=== PATIENT | male | born 1970 | race Two or more races ===

== ENCOUNTER 2020-04-19 | Outpatient (REF) | payer OTHER, SELFPAY | END 2020-04-19 00:01 | disposition home or self-care (01) | LOC: HO.LNP | PROVIDERS: Visit Provider Hospitalist | DX: Z20.828 Contact with and (suspected) exposure to other viral communicable diseases (principal) | CPT/HCPCS: 87635 ==

== ENCOUNTER 2020-05-27 16:54 | Outpatient (REF) | payer OTHER, SELFPAY ==
[2020-05-27 17:06] LABS: Glucose Urine UA NEG (NEG); Leukocyte Esterase Urine NEG (NEG); Nitrite Urine NEG (NEG); Specific Gravity - Urine >= 1.030 (1.005-1.025); Urine Blood NEG (NEG); Urine Ketones NEG (NEG); Urine Protein NEG (NEG-TRACE)
[2020-05-27 17:08] LABS: Appearance Urine CLEAR; Color Urine YELLOW
== END 2020-05-27 16:55 | disposition home or self-care (01) ==
LOC: HO.LNP 16:54
PROVIDERS: Visit Provider Nurse Practitioner Family
DX: N39.44 Nocturnal enuresis (principal); N52.9 Male erectile dysfunction, unspecified; M25.512 Pain in left shoulder
CPT/HCPCS: 81003; 87086

== ENCOUNTER 2020-09-19 15:18 | Outpatient (REF) | payer OTHER, SELFPAY ==
--- NOTE | ~2020-09-19 | XR_ITS ---
EXAMINATION: XR SHOULDER, LEFT CLINICAL INFORMATION: Pain in the left shoulder COMPARISON: X-ray left shoulder April 2019 TECHNIQUE: AP external rotation, Grashey, scapular Y, and axillary views of the left shoulder. FINDINGS: The bones and soft tissues are normal. No fracture. Glenohumeral and acromioclavicular alignment is anatomic with normal joint space. No abnormal soft tissue calcifications. XR/XR shoulder LT min 2V IMPRESSION: Normal left shoulder.
[2020-09-24 20:17] LABS: Testosterone, Total 99 ng/dL (250-1100)
== END 2020-09-19 15:19 | disposition home or self-care (01) ==
LOC: HO.HMGCLDS 15:18
PROVIDERS: PCP Nurse Practitioner Family; Visit Provider Nurse Practitioner Family
DX: N52.9 Male erectile dysfunction, unspecified (principal); M25.512 Pain in left shoulder
CPT/HCPCS: 36415; 73030; 84403

== ENCOUNTER → 2021-12-16 12:09 | Outpatient (BNVA) | payer OTHER, SELFPAY | PROVIDERS: PCP Nurse Practitioner Family; Visit Provider Physician Assistant | DX: Z13.89 Encounter for screening for other disorder (principal) | CPT/HCPCS: Q3014 ==

== ENCOUNTER → 2022-02-10 13:14 | Outpatient (BNVA) | payer OTHER, SELFPAY | PROVIDERS: PCP Nurse Practitioner Family; Visit Provider Urology | DX: E29.1 Testicular hypofunction (principal); T40.605A Adverse effect of unspecified narcotics, initial encounter; N52.9 Male erectile dysfunction, unspecified; R79.89 Other specified abnormal findings of blood chemistry; Z12.5 Encounter for screening for malignant neoplasm of prostate; Z79.899 Other long term (current) drug therapy | CPT/HCPCS: 99202 ==

== ENCOUNTER 2022-03-18 15:28 | Outpatient (REF) | payer OTHER, SELFPAY ==
[2022-03-18 17:36] LABS: Prostate Specific Antigen Scr 0.17 ng/mL (<0.05-4.0)
[2022-03-20 05:56] LABS: Follicle Stimulating Hormone 5.4 mIU/mL (1.6-8.0); Lutenizing Hormone 1.2 mIU/mL (1.5-9.3)
[2022-03-24 15:32] LABS: Testosterone, Free 22.5 pg/mL (35.0-155.0); Testosterone, Total 139 ng/dL (250-1100)
== END 2022-03-18 15:29 | disposition home or self-care (01) ==
LOC: HO.LAB 15:28
PROVIDERS: PCP Nurse Practitioner Family; Visit Provider Urology
DX: Z12.5 Encounter for screening for malignant neoplasm of prostate (principal); R79.89 Other specified abnormal findings of blood chemistry; E29.1 Testicular hypofunction
CPT/HCPCS: 36415; 83001; 83002; 84153; 84402; 84403

== ENCOUNTER → 2022-03-25 13:17 | Outpatient (BNVA) | payer OTHER, SELFPAY | PROVIDERS: PCP Nurse Practitioner Family; Visit Provider Urology | DX: E29.1 Testicular hypofunction (principal); N52.9 Male erectile dysfunction, unspecified | CPT/HCPCS: Q3014 ==

== ENCOUNTER 2022-06-24 16:13 | Outpatient (REF) | payer OTHER, SELFPAY ==
[2022-07-01 12:23] LABS: Testosterone, Total 119 ng/dL (250-1100)
== END 2022-06-24 16:14 | disposition home or self-care (01) ==
LOC: HO.LAB 16:13
PROVIDERS: PCP Nurse Practitioner Family; Visit Provider Urology
DX: E29.1 Testicular hypofunction (principal)
CPT/HCPCS: 36415; 84403

== ENCOUNTER → 2022-07-01 13:51 | Outpatient (BNVA) | payer OTHER, SELFPAY | PROVIDERS: PCP Nurse Practitioner Family; Visit Provider Urology | DX: E29.1 Testicular hypofunction (principal); N52.9 Male erectile dysfunction, unspecified; Z79.891 Long term (current) use of opiate analgesic | CPT/HCPCS: Q3014 ==

== ENCOUNTER 2023-01-07 15:37 | Outpatient (REF) | payer OTHER, SELFPAY ==
--- NOTE | 2023-01-07 15:39 | EMG_ITS ---
Please see scanned EMG / Nerve Conduction Report. MTDD
== END 2023-01-07 15:38 | disposition home or self-care (01) ==
LOC: HO.NEURO 15:37
PROVIDERS: PCP Nurse Practitioner Family; Visit Provider Nurse Practitioner Family
DX: R20.0 Anesthesia of skin (principal)
CPT/HCPCS: 95885; 95910

== ENCOUNTER 2023-03-16 13:13 | Outpatient (AMB) | payer OTHER, SELFPAY ==
--- NOTE | 2023-03-16 13:21 | MHC.PC.OV ---
Vital Signs 03/16/23 13:22 Height 5 ft 7 in Weight 205 lb 4 oz BMI 32.1 BP 142/80 H Blood Pressure Location Lt brachial Position Sitting Pulse 87 Pulse Source Pulse Oximeter Pulse Oximetry (%) 95 Oxygen Delivery Method Room Air Intake Visit Reasons: 5 Month follow up Allergies No Known Allergies Allergy (Verified 03/16/23 13:25) Tobacco use date assessed: 03/16/23 Dental Screening Dental Screen Date: 03/16/23 Did you have a dental visit in the last 12 months?: No Did you have a dental problem in the last 6 months where you did not have access to dental care?: No Was dental information given to patient?: Patient has dentist HPI 5 Month follow up HPI Details Pt reports symptoms of a balanitis and start of a phimosis. Will send clotrimazole-betamethasone cream. Pt also reports trigger finger to his left thumb. Will refer to ortho. Denies fever, chills, and dizziness. [facility] Medical History Anxiety Fibromyalgia Insomnia Osteoarthritis of left hip Severe depression Surgical History No pertinent past surgical history Family History Father No problems noted. Mother Diabetes mellitus Brother No problems noted. Brother Substance use disorder Sister Mental health disorder Son Substance use disorder Son No problems noted. Son No problems noted. Son No problems noted. Family/Other Mental health disorder Social History Housing: House Patient Tobacco Use Status: Current everyday Tobacco user Cigarettes Per Day: 7 e-Cigarette/Vaping Use: Never Used Second Hand Smoke Exposure: No service: No Current occupational status: disabled Cognitive needs: No Hearing needs: No Vision needs: No Questionnaire Thrive Questionnaire Date Thrive assessed: 10/22/22 SANTOS-7 AMB Questionnaire SANTOS-7 Date SANTOS - 7 assessed: 10/22/22 Source: Developed by Drs. Bubba Keene, Gosia Croft, Roger Osborn and colleagues, with an educational mic from [employer]. Review of Systems Const Reports as per HPI Physical exam (Primary Care) Vital Signs: Last Vital Signs Pulse 87 03/16/23 13:22 BP 142/80 H 03/16/23 13:22 Pulse Ox 95 03/16/23 13:22 Oxygen Delivery Method Room Air 03/16/23 13:22 BMI result Body Mass Index 32.1 Tobacco/Smoking Status: Tobacco use Status Tobacco use date assessed 03/16/23 03/16/23 13:32 Patient Tobacco Use Status Current everyday Tobacco 03/16/23 13:32 e-Cigarette/Vaping Use Never Used 03/16/23 13:32 Thrive Assessment: Date of Thrive Assessment Date Thrive assessed 10/22/22 03/16/23 13:32 Const General: cooperative Nutritional Appearance: obese Orientation/consciousness: patient oriented x3 Resp Effort & Inspection: normal respiratory effort Auscultation: clear to auscultation bilaterally Cardio Rate: regular rate Rhythm: regular rhythm Heart sounds: S1 normal heart sound present and S2 normal heart sound present Other: start of slight phimosis though able to retract foreskin, base of glans penis slightly erythematous (balanitis) Neuro General: patient oriented x3 Extrem Other: trigger finger to left thumb distal PIP joint, snapping extension Psych Appearance: grossly normal Mental Status: mental status grossly normal Speech and movement: Normal speech and movement present Affect: normal affect Attitude: cooperative Thought process: Normal thought process present Thought content: Normal thought content present Insight: Good insight present (Psych) Judgement: Good judgement present (Psych) Assessment and Plan Assessment & Plan (1) Trigger finger: Code(s): M65.30 - Trigger finger, unspecified finger Plan: Referred to ortho Plan The patient agreed to the use of a medical communication specialist for this encounter. Scribed for KENYETTA Garrett by Marcy Armenta medical communication specialist, on 03/16/2023 at 13:35 EST. Orders: Referrals Orthopedics Referral M65.30 - Trigger finger, unspecified finger Medications: New clotrimazole-betamethasone 1-0.05 % 1 appl topical BID 45 grams 0RF Coding Level of Care Code Est Pt Level 3 (68456) Diagnoses Trigger finger M65.30
[2023-03-16 13:22] VITALS: BP 142/80; PULSE 87; O2SAT 95; BMI 32.1
== END 2023-03-16 13:55 | disposition home or self-care (01) ==
PROVIDERS: Visit Provider Nurse Practitioner Family
DX: M65.30 Trigger finger, unspecified finger (principal)
CPT/HCPCS: 99213

== ENCOUNTER 2023-05-13 14:26 | Outpatient (AMB) | payer OTHER, SELFPAY ==
--- NOTE | 2023-05-13 14:28 | MHC.OFFVIS ---
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 Patient reports ongoing pain for the left thumb and off and on pain for the right for about a year. He states that his left thumb is worse than the right. When he is over working his hands he tends to have a clicking sensation in both thumbs per patient. 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 The patient reports ongoing pain for the left thumb and intermittent pain for the right thumb over the last year, since 2021. He states that his left thumb is worse than the right. He claims when he overworks the hands he tends to have a clicking sensation in both thumbs. 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 [facility] Medical History Anxiety Fibromyalgia Insomnia Osteoarthritis of left hip Severe depression Surgical History No pertinent past surgical history Family History Father No problems noted. Mother Diabetes mellitus Brother No problems noted. Brother Substance use disorder Sister Mental health disorder Son Substance use disorder Son No problems noted. Son No problems noted. Son No problems noted. Family/Other Mental health disorder Social History Housing: House Patient Tobacco Use Status: Current everyday Tobacco user Cigarettes Per Day: 7 e-Cigarette/Vaping Use: Never Used Second Hand Smoke Exposure: No service: No Current occupational status: disabled Cognitive needs: No Hearing needs: No Vision needs: No Review of Systems Const All systems reviewed & are unremarkable except as noted in HPI and below Physical Exam Vital Signs: BMI result Body Mass Index 32.1 Const General: cooperative and no acute distress Orientation/consciousness: patient oriented x3 Resp Effort & Inspection: normal respiratory effort and able to speak in complete sentences Cardio Peripheral pulses: Peripheral pulses 2+ throughout Skin General skin exam: no rashes or lesions noted Neuro General: patient oriented x3 Extrem Other: Left thumb: Trigger finger of the left thumb with active locking. Tenderness to palpation at the A1 vimal. Left hand: Normal to inspection. No ecchymosis, erythema, or edema. Able to perform full finger flexion, extension, abduction, adduction, finger cross, okay sign, and thumbs up without deficit. Able to make a closed fist. Intermittent numbness and tingling in all digits. Capillary refill is brisk. Radial pulse intact. Assessment & Plan Assessment & Plan (1) Trigger finger of left thumb: Code(s): M65.312 - Trigger thumb, left thumb Plan Mr. Espinosa is a 52-year-old right hand dominant male who presents in the office today, as a new patient, for an evaluation of bilateral thumb pain. The patient reports ongoing pain for the left thumb and intermittent pain for the right thumb over the last year, since 2021. He states that his left thumb is worse than the right. He claims when he overworks the hands he tends to have a clicking sensation in both thumbs. 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 We discussed a left thumb trigger finger release. He has interested in moving forward with this. He did have an EMG which was negative for carpal tunnel or cubital tunnel. He will follow up for her preoperative appointment, or sooner if needed. EMG of the left upper extremity, obtained on 01/07/2023, was negative for cubital or carpal tunnel. Patient Instructions: Scribed for Glenis Pennington PA-C by Cristina Aaron medical genetics director, on 05/13/2023 at 2:35 pm, EST. Coding Level of Care Code New Pt Level 4 (40218) Diagnoses Trigger finger of left thumb M65.312
[2023-05-13 14:34] VITALS: BMI 32.1
== END 2023-05-13 15:01 | disposition home or self-care (01) ==
PROVIDERS: PCP Nurse Practitioner Family; Visit Provider Physician Assistant
DX: M65.312 Trigger thumb, left thumb (principal)
CPT/HCPCS: 99204

== ENCOUNTER → 2023-05-13 14:26 | Outpatient (BNVA) | payer OTHER, SELFPAY | PROVIDERS: PCP Nurse Practitioner Family; Visit Provider Physician Assistant | DX: M65.312 Trigger thumb, left thumb (principal) | CPT/HCPCS: 99202 ==

== ENCOUNTER 2023-06-15 15:40 | Outpatient (AMB) | payer OTHER, SELFPAY ==
--- NOTE | 2023-06-15 15:42 | A.OFFPC_ITS ---
Vital Signs 06/15/23 15:45 Height 5 ft 7 in Weight 207 lb BMI 32.4 BP 110/68 Blood Pressure Location Rt brachial Position Sitting Pulse 70 Pulse Source Pulse Oximeter Pulse Oximetry (%) 96 Oxygen Delivery Method Room Air Intake Visit Reasons: 3-4 Month follow up Intake Note: Patient would like to talk about lower back pain and bilat hand pain/numbness. Allergies No Known Allergies Allergy (Verified 06/15/23 15:48) Tobacco use date assessed: 03/16/23 HPI 3-4 Month follow up HPI Details Pt is following up with ortho due to trigger thumb of left hand. Pt is concerned about his bilat hand weakness. ? arthritis component. XRs have been ordered previously, encouraged pt to have these done. Denies fever, chills, and dizziness. [facility] Medical History Anxiety Fibromyalgia Insomnia Osteoarthritis of left hip Severe depression Surgical History No pertinent past surgical history Family History Father No problems noted. Mother Diabetes mellitus Brother No problems noted. Brother Substance use disorder Sister Mental health disorder Son Substance use disorder Son No problems noted. Son No problems noted. Son No problems noted. Family/Other Mental health disorder Social History Housing: House Patient Tobacco Use Status: Current everyday Tobacco user Cigarettes Per Day: 7 e-Cigarette/Vaping Use: Never Used Second Hand Smoke Exposure: No service: No Current occupational status: disabled Cognitive needs: No Hearing needs: No Vision needs: No Questionnaire Thrive Questionnaire Date Thrive assessed: 10/22/22 SANTOS-7 AMB Questionnaire SANTOS-7 Date SANTOS - 7 assessed: 10/22/22 Source: Developed by Drs. Bubba Keene, Gosia Croft, Roger Osborn and colleagues, with an educational mic from [employer]. Review of Systems Const Reports as per HPI Physical exam (Primary Care) Vital Signs: Last Vital Signs Pulse 70 06/15/23 15:45 BP 110/68 06/15/23 15:45 Pulse Ox 96 06/15/23 15:45 Oxygen Delivery Method Room Air 06/15/23 15:45 BMI result Body Mass Index 32.4 Tobacco/Smoking Status: Tobacco use Status Tobacco use date assessed 03/16/23 06/15/23 15:44 Patient Tobacco Use Status Current everyday Tobacco 06/15/23 15:44 e-Cigarette/Vaping Use Never Used 06/15/23 15:44 Thrive Assessment: Date of Thrive Assessment Date Thrive assessed 10/22/22 06/15/23 15:44 Const General: cooperative Nutritional Appearance: obese Orientation/consciousness: patient oriented x3 Resp Effort & Inspection: normal respiratory effort Auscultation: clear to auscultation bilaterally Cardio Rate: regular rate Rhythm: regular rhythm Heart sounds: S1 normal heart sound present and S2 normal heart sound present Neuro General: patient oriented x3 Extrem Other: minimal swelling to PIP joints bilat, weak hand grasp bilat, + radial pulses, good cap refill Psych Appearance: grossly normal Mental Status: mental status grossly normal Speech and movement: Normal speech and movement present Affect: normal affect Attitude: cooperative Thought process: Normal thought process present Thought content: Normal thought content present Insight: Good insight present (Psych) Judgement: Good judgement present (Psych) Assessment and Plan Assessment & Plan (1) Trigger finger of left thumb: Code(s): M65.312 - Trigger thumb, left thumb (2) Osteoarthritis, hand: Code(s): M19.049 - Primary osteoarthritis, unspecified hand Plan The patient agreed to the use of a pesticide use medical coordinator for this encounter. Scribed for KENYETTA Garrett by Marcy Armenta pesticide use medical coordinator, on 06/15/2023 at 15:50 EST. Coding Level of Care Code Est Pt Level 3 (97833) Diagnoses Trigger finger of left thumb M65.312 Osteoarthritis, hand M19.049
[2023-06-15 15:45] VITALS: BP 110/68; PULSE 70; O2SAT 96; BMI 32.4
== END 2023-06-15 16:18 | disposition home or self-care (01) ==
LOC: HO.HMGC 15:40
PROVIDERS: PCP Nurse Practitioner Family; Visit Provider Nurse Practitioner Family
DX: M65.312 Trigger thumb, left thumb (principal); M19.049 Primary osteoarthritis, unspecified hand
CPT/HCPCS: 99213

== ENCOUNTER 2023-06-15 16:03 | Outpatient (REF) | payer OTHER, SELFPAY ==
--- NOTE | ~2023-06-15 | XR_ITS ---
EXAMINATION: XR HAND, RIGHT CLINICAL INFORMATION: Primary osteoarthritis COMPARISON: None available. TECHNIQUE: PA, lateral, and oblique views of the right hand. FINDINGS: No acute visible fracture or dislocation. Mild multi joint arthritic changes with joint space narrowing and periarticular osteophyte formation. Joint space alignment are otherwise maintained. Soft tissues are unremarkable. XR/XR hand RT min 3V IMPRESSION: 1. No acute visible fracture or dislocation. 2. Mild multi joint arthritic changes.
--- NOTE | ~2023-06-15 | XR_ITS ---
EXAMINATION: XR HAND, LEFT CLINICAL INFORMATION: Primary osteoarthritis COMPARISON: None available. TECHNIQUE: PA, lateral, and oblique views of the left hand. FINDINGS: No acute visible fracture or dislocation. Mild multi joint arthritic changes with joint space narrowing and periarticular osteophyte formation. Slight negative ulnar variance. Joint space alignment are otherwise maintained. Soft tissues are unremarkable. XR/XR hand LT min 3V IMPRESSION: 1. No acute visible fracture or dislocation. 2. Mild multi joint arthritic changes. 3. Slight negative ulnar variance.
== END 2023-06-15 16:04 | disposition home or self-care (01) ==
LOC: HO.HMGCX 16:03
PROVIDERS: PCP Nurse Practitioner Family; Visit Provider Nurse Practitioner Family
DX: M19.041 Primary osteoarthritis, right hand (principal); M19.042 Primary osteoarthritis, left hand
CPT/HCPCS: 73130

== ENCOUNTER 2023-12-28 14:00 | Outpatient (AMB) | payer OTHER, SELFPAY ==
[2023-12-28 14:12] VITALS: BP 130/78; PULSE 88; TEMP 36.6; O2SAT 98
--- NOTE | 2023-12-28 14:12 | AM.OFFWIN_ITS ---
Intake Vital Signs 12/28/23 14:12 Height 5 ft 7 in Weight 20 lb BMI 3.1 BP 130/78 Blood Pressure Location Rt brachial Position Sitting Pulse 88 Pulse Source Pulse Oximeter Temp 97.8 F Temp Source Oral Pulse Oximetry (%) 98 Intake Visit Reasons: EP-Rash, bilateral legs Intake Note: pt is here for rash bilateral leg pain Patient Tobacco Use Status: Current everyday Tobacco user Allergies No Known Allergies Allergy (Verified 12/28/23 14:12) Do you need a note to return to daycare/school/sports/work: No HPI HPI Comments History of Present Illness Details Patient presents to the office with rash complaint He states ongoing chronic arthritis in fingers and L shoulder which he notes is continual He said main complaint is rash/spots on legs Using soaps on areas which helps Ongoing for 6 months; he denies seeig anyone for it States hx of it a few years ago and was treated with a clay products machine operator with antibiotics He said no itch or pain now, 0/10 Wants to know why it keeps coming back He itches them and they bleed No fever or chills Also states itchy redness around groin; believes secondary to wearing depends and sometimes wakes up wet Cleans area immediately PFSH Medical History Anxiety Fibromyalgia Insomnia Osteoarthritis of left hip Severe depression Surgical History No pertinent past surgical history Family History Father No problems noted. Mother Diabetes mellitus Brother No problems noted. Brother Substance use disorder Sister Mental health disorder Son Substance use disorder Son No problems noted. Son No problems noted. Son No problems noted. Family/Other Mental health disorder Social History Housing: House Patient Tobacco Use Status: Current everyday Tobacco user Cigarettes Per Day: 7 e-Cigarette/Vaping Use: Never Used Second Hand Smoke Exposure: No service: No Current occupational status: disabled Cognitive needs: No Hearing needs: No Vision needs: No Review of Systems Const Denies chills and Denies fever(s) Skin/Breast Reports pruritus, Reports lesions and Reports rash Physical Exam Vital Signs: Last Vital Signs Temp 97.8 F 12/28/23 14:12 Pulse 88 12/28/23 14:12 BP 130/78 12/28/23 14:12 Pulse Ox 98 12/28/23 14:12 BMI result Body Mass Index 3.1 General: Non-toxic, NAD. Speaking full sentences. Skin: Warm dry throughout. Bilateral lower extremities has chronic scarring circular lesions to shins. There is dry patches of skin with excoriations to lower shins bilaterally. Groin revealed no erythema, edema, vesicles or lesions along groin or shaft. Pt used gown to self cover and expose areas of concern with just visual examination required. Respiratory: No tachypnea Cardiac: RRR. Neurology: A/O. No aphasia or facial droop. Gait without abnormality Psych: Good mood and affect Assessment & Plan Assessment & Plan (1) Dermatitis: Code(s): L30.9 - Dermatitis, unspecified Plan: Patient seen and evaluated. Chronic venous stasis and dry skin to lower shins. Eucerin cream sent to pharmacy Groin rash revealed no fungal or bacterial infection Verbal education provided to pt in regards to hygeine Patient gave verbal understanding and had no additional questions or concerns at time of discharge All questions answered Medications: New emollient combination no.119 (Eucerin Advanced Repair topical cream) Apply daily to BID prn dry skin 1 appl topical DAILY 2 weeks PRN 454 grams 0RF dry skin Coding Level of Care Code Est Pt Level 3 (29673) Diagnoses Dermatitis L30.9
== END 2023-12-28 15:00 | disposition home or self-care (01) ==
PROVIDERS: PCP Nurse Practitioner Family; Visit Provider Physician Assistant
DX: L30.9 Dermatitis, unspecified (principal)
CPT/HCPCS: 99213

== ENCOUNTER 2024-09-12 13:20 | Outpatient (AMB) | payer OTHER, SELFPAY ==
[2024-09-12 13:23] VITALS: BP 128/78; PULSE 87; TEMP 36.7; O2SAT 96; BMI 32.7
--- NOTE | 2024-09-12 13:23 | A.OFFPC_ITS ---
Vital Signs 09/12/24 13:23 Height 5 ft 7 in Weight 209 lb BMI 32.7 BP 128/78 Blood Pressure Location Lt brachial Position Sitting Pulse 87 Pulse Source Pulse Oximeter Temp 98.0 F Temp Source Oral Pulse Oximetry (%) 96 Intake Visit Reasons: f/u rash Intake Note: pt is here for to f/up regarding rash and other medical concerns per patient Patient Registration Supervisor Required: No Accompanied by: Self / Same As Patient Allergies No Known Allergies Allergy (Verified 09/25/24 14:00) Medication List - Last Reconciled 09/12/24 by Sean Wright, RADIATION MONITOR-BC [adult pull ups medium As directed] ammonium lactate 12% 1 appl topical BID diazepam 5 mg PO BID PRN 30 days diclofenac sodium 1% (Voltaren Arthritis Pain) 4 grams topical QID duloxetine 30 mg PO BID emollient combination no.119 (Eucerin Advanced Repair topical cream) 1 appl topical DAILY PRN 2 weeks gabapentin 100 mg PO TID [incontinence wipes As directed] ketoconazole 2% 1 appl topical BID 14 days methadone 85 mg PO DAILY naproxen 500 mg PO BID 30 days polyethylene glycol 3350 (Miralax) 17 grams PO DAILY prazosin 100f2 mg PO BEDTIME quetiapine 50 mg PO BEDTIME quetiapine 200 mg PO BEDTIME sildenafil 100 mg PO DAILY PRN 10 days testosterone 50 mg topical DAILY 30 days tizanidine 4 mg PO BID PRN underpads As directed Tobacco use date assessed: 09/12/24 Dental Screening Dental Screen Date: 09/12/24 Did you have a dental visit in the last 12 months?: Yes Did you have a dental problem in the last 6 months where you did not have access to dental care?: No Was dental information given to patient?: Patient has dentist HPI f/u rash 2 HPI Details Chief Complaint The patient presents with itchy dermatitis in the inguinal region. History of Present Illness The patient is a 53-year-old male presenting with dermatitis in the inguinal region. The patient describes the condition as itchy and localized to the inner inguinal regions, characterized as faintly erythematous and macular. With a suspicion of tinea, this possibly points to a fungal cause. There is no documented specific onset date or aggravated factors, nor has the patient mentioned any prior treatments for the condition. The nature of the symptoms being diffuse and mild suggests a non-severe impact on his daily activities. Social History - Tobacco Use: Patient smokes approximat alden one pack of cigarettes a day and has done so since the age of 19. Health Maintenance - Referral for low-dose computed tomogra phy (CAT) scans for lung evaluation due to smoking history. - Electrocardiogram (EKG) ordered due to methadone usage. Review of Systems - Skin: Reports itchy dermatitis in the inguinal region. Physical Exam General: Cooperative, healthy appearing, comfortable, no acute distress and well developed Orientation: Patient oriented x3 Limitations: No limitations Head: Normal to inspection Ears: Hearing grossly normal bilaterally Nose: Normal external nose present Face and sinus: Normal facial exam Eyes: Appearance normal, both eyes and all related structures Neck: Normal visual inspection and Yes full ROM Respiratory: Normal respiratory effort and able to speak in complete sentences. Clear to auscultation bilaterally Cardiovascular: Regular rate and rhythm. Normal S1 and S2 GI: Normal to inspection. Soft to palpation and nontender Skin: Faintly erythematous, macular dermatitis in the inguinal region Neuro: Patient oriented x3 Extremities: Normal to inspection Results Plan For the presented dermatitis in the inguinal region, management with ketoconazole is planned, with treatment tailored to address a potential fungal infection. An EKG is scheduled due to methadone use to ensure cardiac health. Additionally, a referral for smoke-related lung evaluation via a low-dose CAT scan is arranged. These measures are directed at mitigating potential underlying causes and maintaining overall patient health given the presented symptoms and history. Discussion Notes I informed the patient of the likely diagnosis of dermatitis with a possible fungal component and explained the use of ketoconazole as a treatment option. Discussed the importance of monitoring cardiac health with an EKG due to methadone use. In the context of the patient's smoking history, I advised undergoing a low-dose CAT scan as part of ongoing pulmonary monitoring. The patient was made aware of the risks of continued smoking and was offered screening options to help in early detection and prevention of potential complications. Patient Instructions - Apply ketoconazole as directed to the affected inguinal area. - Undergo the scheduled EKG for monitori ng purposes. - Attend the appointment for a low-dose CAT scan as arranged for lung screening. - Consider cessation of smoking to impro ve overall health. [facility] Medical History Severe depression Osteoarthritis of left hip Fibromyalgia Anxiety Insomnia Surgical History No pertinent past surgical history Family History Father No problems noted. Mother Diabetes mellitus Brother No problems noted. Brother Substance use disorder Sister Mental health disorder Son Substance use disorder Son No problems noted. Son No problems noted. Son No problems noted. Family/Other Mental health disorder Social History Housing: House Patient Tobacco Use Status: Current everyday Tobacco user Cigarettes Per Day: 7 e-Cigarette/Vaping Use: Never Used Second Hand Smoke Exposure: No service: No Current occupational status: disabled Cognitive needs: No Hearing needs: No Vision needs: No Questionnaire PHQ-9 Over the last 2 weeks, how often have you been bothered by any of the following problems? 1. Little interest or pleasure in doing things: nearly every day 2. Feeling down, depressed, or hopeless: nearly every day 3. Trouble falling or staying asleep, or sleeping too much: several days 4. Feeling tired or having little energy: nearly every day 5. Poor appetite or overeating: not at all 6. Feeling bad about yourself - or that you are a failure or have let yourself or your family down: nearly every day 7. Trouble concentrating on things, such as reading the newspaper or watching television: several days 8. Moving or speaking so slowly that other people could have noticed. Or the opposite - being so fidgety or restless that you have been moving around a lot more than usual: several days 9. Thoughts that you would be better off or of hurting yourself in some way: not at all Total score: 15 Depression Screening Interpretation: Positive (denies any si or hi, has a therapist and psychiatrist) Depression Screening Follow-up: Existing condition and In treatment Depression Screening Done: Yes 52932 - PHQ-9 Billing: Yes Source: Developed by Drs. Bubba Keene, Gosia Croft, Roger Osborn and colleagues, with an educational mic from [employer]. Thrive Questionnaire Date Thrive assessed: 09/12/24 I am a: Patient What is your living situation today?: I have a place to live, but I am worried about losing it in the future Within the past 12 months, did the food you bought not last and you didn't have the money to get more?: Sometimes True Within the past 12 months, did you worry whether your food would run out before you got money to buy more?: Often true Do you have trouble paying for medicines?: No Do you have trouble getting transportation to medical appointments?: No Do you have trouble paying your heating and electricity bill?: No Do you have trouble taking care of your child, family member or friend?: I choose not to answer this question Do you have trouble with day-to-day activities such as bathing, preparing meals, shopping, managing finances, etc.?: Yes Are you currently unemployed and looking for a job?: No Are you interested in more education?: I choose not to answer this question Please select the resources that you would like help with: Housing/Senior Living Currently or been in a relationship where the following occur: I choose not to answer THRIVE Score: 3 AUDIT C Alcohol Use Questionnaire (AUDIT-C) 1. How often do you have a drink containing alcohol?: Never 3. How often do you have six or more drinks on one occasion?: Never Total Score: 0 Score Reviewed/Action Taken: Yes SANTOS-7 AMB Questionnaire SANTOS-7 Date SANTOS - 7 assessed: 09/12/24 Feeling nervous, anxious, or on edge: 3 = Nearly every day Not being able to stop or control worryin = Nearly every day Worrying too much about different things: 3 = Nearly every day Trouble relaxin = Several days Being so restless that it is hard to sit still: 1 = Several days Becoming easily annoyed or irritable: 1 = Several days Feeling afraid as if something awful might happen: 3 = Nearly every day Total SANTOS-7 score (0-4 normal; 5-9 mild; 10-14 moderate; 15-21 severe): 15 Source: Developed by Drs. Bubba Keene, Gosia Croft, Roger Osborn and colleagues, with an educational mic from [employer]. SANTOS-7 Assessment Billing SANTOS-7 Assessment Tool: SANTOS-7 Assessment 82394 (has a psychiatrist and psychologist, denies any SI or hi. ) Physical exam (Primary Care) Vital Signs: Last Vital Signs Temp 98.0 F 09/12/24 13:23 Pulse 87 09/12/24 13:23 BP 128/78 09/12/24 13:23 Pulse Ox 96 09/12/24 13:23 BMI result Body Mass Index 32.7 Tobacco/Smoking Status: Tobacco use Status Tobacco use date assessed 09/12/24 09/12/24 13:25 Patient Tobacco Use Status Current everyday Tobacco 09/12/24 13:25 e-Cigarette/Vaping Use Never Used 09/12/24 13:25 PHQ-9: PHQ-9 Score PHQ-9: Total score 15 09/12/24 14:41 Depression Screening Interpretation: Positive (denies any si or hi, has a therapist and psychiatrist) Depression Screening Follow-up: Existing condition and In treatment Thrive Assessment: Date of Thrive Assessment Date Thrive assessed 09/12/24 09/12/24 13:25 Currently or been in a relationship where the following occur: I choose not to answer Coding Level of Care Code Est Pt Level 3 (81376) Diagnoses Dermatitis L30.9 Smoker F17.200 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 Orders: Orders Comprehensive [place]. Panel Fast 09/12/24 Z00.00 - Encounter for general adult medical examination without abnormal findings TSH reflex Free T4 09/12/24 Z00.00 - Encounter for general adult medical examination without abnormal findings UA CC w/rflx Micro + Cult 09/12/24 Z00.00 - Encounter for general adult medical examination without abnormal findings AMB EKG-In Office 09/12/24 F11.20 - Opioid dependence, uncomplicated Complete Blood Count Auto Diff 09/12/24 Z00.00 - Encounter for general adult medical examination without abnormal findings Lipid Panel 09/12/24 Z00.00 - Encounter for general adult medical examination without abnormal findings Referrals Lung Cancer Screening Referral F17.200 - Nicotine dependence, unspecified, uncomplicated Medications: New ketoconazole 2% 1 appl topical BID 30 grams 0RF 14 days ammonium lactate 12% 1 appl topical BID 140 grams 0RF
== END 2024-09-12 14:39 | disposition home or self-care (01) ==
PROVIDERS: PCP Nurse Practitioner Family; Visit Provider Nurse Practitioner Family
DX: L30.9 Dermatitis, unspecified (principal); F17.200 Nicotine dependence, unspecified, uncomplicated; F11.20 Opioid dependence, uncomplicated

== ENCOUNTER → 2024-09-12 13:20 | Outpatient (BNVA) | payer OTHER, SELFPAY | PROVIDERS: PCP Nurse Practitioner Family; Visit Provider Nurse Practitioner Family | DX: L30.9 Dermatitis, unspecified (principal); F11.20 Opioid dependence, uncomplicated; F17.200 Nicotine dependence, unspecified, uncomplicated; Z71.6 Tobacco abuse counseling | CPT/HCPCS: 96127; 99212 ==

== ENCOUNTER 2024-09-25 13:01 | Outpatient (AMB) | payer OTHER, SELFPAY ==
[2024-09-25 13:08] VITALS: BP 130/78; PULSE 94; TEMP 37.1; O2SAT 94; BMI 32.9
--- NOTE | 2024-09-25 13:08 | A.OFFPC_ITS ---
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 Accompanied by: Self / Same As Patient Allergies No Known Allergies Allergy (Verified 09/25/24 14:00) Medication List - Last Reconciled 09/25/24 by AMERICA Villalobos-BC [adult pull ups medium As directed] ammonium lactate 12% 1 appl topical BID diazepam 5 mg PO BID PRN 30 days diclofenac sodium 1% (Voltaren Arthritis Pain) 4 grams topical QID duloxetine 30 mg PO BID emollient combination no.119 (Eucerin Advanced Repair topical cream) 1 appl topical DAILY PRN 2 weeks gabapentin 100 mg PO TID [incontinence wipes As directed] ketoconazole 2% 1 appl topical BID 14 days methadone 85 mg PO DAILY naproxen 500 mg PO BID 30 days polyethylene glycol 3350 (Miralax) 17 grams PO DAILY prazosin 100f2 mg PO BEDTIME quetiapine 50 mg PO BEDTIME quetiapine 200 mg PO BEDTIME sildenafil 100 mg PO DAILY PRN 10 days testosterone 50 mg topical DAILY 30 days tizanidine 4 mg PO BID PRN underpads As directed Tobacco use date assessed: 09/12/24 Dental Screening Dental Screen Date: 09/12/24 HPI PE HPI Details History of Present Illness The patient is a 54-year-old male presenting with chronic pain management. He has a longstanding history of pain issues managed through pain management and rheumatology services, with fibromyalgia playing a significant role. There is also consideration of hypersensitivity likely stemming from past multiple opioid therapy, now maintained on methadone. While he denies acute symptoms across cardiovascular and gastrointestinal systems, he continues psychiatric care, working with both a psychiatrist and therapist. Shoulder discomfort was assessed with negative X-rays previously. Cardiovascular findings include a faint systolic murmur, with a planned echocardiogram for further assessment. Lungs were generally clear upon examination. Given his history of smoking three cigarettes per day, lung screening through a low dose CT scan was recommended, along with taking essential laboratory tests soon. Health Maintenance - Referral in place for low dose CT scan for lung cancer screening due to smoking history. - Emphasized the necessity of obtaining fasting labs for comprehensive health assessment. - Reinforced the importance of smoking c essation. Social History - Tobacco use: Smokes up to three cigare ttes per day. - Psychiatric care: Actively sees a psyc hiatrist and a therapist for ongoing management. Review of Systems -denies any fevers, chills, N/V - Cardiovascular: Denies chest pain, scarlett rtness of breath. - Gastrointestinal: Denies blood in stoo l, constipation, diarrhea. - Genitourinary: Denies any urinary issu es. - Psychiatric: Denies suicidal or homici vincent ideation. Physical Exam General: Cooperative, healthy appearing, comfortable, no acute distress and well developed Orientation: Patient oriented x3 Limitations: Slow to move due to discomfort, mostly shoulders Head: Normal to inspection Ears: Hearing grossly normal bilaterally Nose: Normal external nose present Face and sinus: Normal facial exam Eyes: Appearance normal, both eyes and all related structures Neck: Normal visual inspection and Yes full ROM Respiratory: Normal respiratory effort and able to speak in complete sentences. Lungs were fairly clear Cardiovascular: Regular rate and rhythm. Normal S1 and S2 with a faint systolic murmur GI: Normal to inspection. Soft to palpation and nontender Skin: No rashes or lesions noted Neuro: Patient oriented x3 Extremities: Normal to inspection Results Plan A comprehensive management plan involves addressing the patient's chronic pain through ongoing fibromyalgia treatment and ruling out hypersensitivity related to previous opioid use. Cardiovascular monitoring will include an echocardiogram due to the systolic murmur noted. From a preventative standpoint, a low dose CT scan is scheduled to screen for lung cancer related to smoking. The importance of completing fasting labs is stressed, with continued engagement in psychiatric care acting as a supportive element in his holistic care approach, alongside smoking cessation efforts. Discussion Notes During our discussion, we addressed the continuation and complexities of managing chronic pain with a focus on fibromyalgia and potential opioid-related hypersensitivity. I explained the importance of further cardiovascular assessment through an echocardiogram to evaluate the faint systolic murmur. We also addressed lung health by arranging a low dose CT scan given his tobacco use history, emphasizing the critical need for lab tests after fasting for a holis tic assessment. Our discussion included reinforcing smoking cessation strategies and the ongoing necessity of psychiatric evaluations with his current mental health providers. The patient was encouraged to adhere to the planned diagnostics and treatments as discussed. Patient Instructions - Attend scheduled echocardiogram to ass ess heart murmur. - Undergo low dose CT scan for lung scre ening as per referral. - Complete fasting laboratory tests soon for comprehensive evaluation. - Engage actively in sessions with psych iatrist and therapist. - Reduce and aim to cease smoking to imp rove overall health. - Report any new or worsening symptoms p romptly. [facility] Medical History Severe depression Osteoarthritis of left hip Fibromyalgia Anxiety Insomnia Surgical History No pertinent past surgical history Family History Father No problems noted. Mother Diabetes mellitus Brother No problems noted. Brother Substance use disorder Sister Mental health disorder Son Substance use disorder Son No problems noted. Son No problems noted. Son No problems noted. Family/Other Mental health disorder Social History Housing: House Patient Tobacco Use Status: Current everyday Tobacco user Cigarettes Per Day: 7 e-Cigarette/Vaping Use: Never Used Second Hand Smoke Exposure: No service: No Current occupational status: disabled Cognitive needs: No Hearing needs: No Vision needs: No Questionnaire Thrive Questionnaire Date Thrive assessed: 09/12/24 I am a: Patient What is your living situation today?: I have a place to live, but I am worried about losing it in the future Within the past 12 months, did the food you bought not last and you didn't have the money to get more?: Sometimes True Within the past 12 months, did you worry whether your food would run out before you got money to buy more?: Often true Do you have trouble paying for medicines?: No Do you have trouble getting transportation to medical appointments?: No Do you have trouble paying your heating and electricity bill?: No Do you have trouble taking care of your child, family member or friend?: I choose not to answer this question Do you have trouble with day-to-day activities such as bathing, preparing meals, shopping, managing finances, etc.?: Yes Are you currently unemployed and looking for a job?: No Are you interested in more education?: I choose not to answer this question Please select the resources that you would like help with: Housing/Residential Currently or been in a relationship where the following occur: I choose not to answer THRIVE Score: 3 SANTOS-7 AMB Questionnaire SANTOS-7 Date SANTOS - 7 assessed: 09/12/24 Source: Developed by Drs. Bubba Keene, Gosia Croft, Roger Osborn and colleagues, with an educational mic from [employer]. Physical exam (Primary Care) Vital Signs: Last Vital Signs Temp 98.7 F 09/25/24 13:08 Pulse 94 09/25/24 13:08 BP 130/78 09/25/24 13:08 Pulse Ox 94 09/25/24 13:08 Oxygen Delivery Method Room Air 09/25/24 13:08 BMI result Body Mass Index 32.9 Tobacco/Smoking Status: Tobacco use Status Tobacco use date assessed 09/12/24 09/25/24 13:10 Patient Tobacco Use Status Current everyday Tobacco 09/25/24 13:10 e-Cigarette/Vaping Use Never Used 09/25/24 13:10 Thrive Assessment: Date of Thrive Assessment Date Thrive assessed 09/12/24 09/25/24 13:10 Currently or been in a relationship where the following occur: I choose not to answer Coding Level of Care Code Est Pt Prev Care 40-64y(49803) Diagnoses Screening PSA (prostate specific antigen) Z12.5 Systolic murmur R01.1 Assessment & Plan Assessment & Plan (1) Screening PSA (prostate specific antigen): Code(s): Z12.5 - Encounter for screening for malignant neoplasm of prostate Category: Medical (2) Systolic murmur: Code(s): R01.1 - Cardiac murmur, unspecified Category: Medical Plan . Orders: Orders Prostate Specific Antigen Scr Today Z12.5 - Encounter for screening for malignant neoplasm of prostate CA echo transthoracic complete Today R01.1 - Cardiac murmur, unspecified Referrals Cologuard Test Z12.11 - Encounter for screening for malignant neoplasm of colon, Z12.12 - Encounter for screening for malignant neoplasm of rectum
== END 2024-09-25 14:25 | disposition home or self-care (01) ==
LOC: HO.HMCC 13:02
PROVIDERS: PCP Nurse Practitioner Family; Visit Provider Nurse Practitioner Family
DX: Z00.00 Encounter for general adult medical examination without abnormal findings (principal); Z12.5 Encounter for screening for malignant neoplasm of prostate; R01.1 Cardiac murmur, unspecified

== ENCOUNTER → 2024-09-25 13:01 | Outpatient (BNVA) | payer OTHER, SELFPAY | PROVIDERS: PCP Nurse Practitioner Family; Visit Provider Nurse Practitioner Family | DX: Z00.00 Encounter for general adult medical examination without abnormal findings (principal); R01.1 Cardiac murmur, unspecified | CPT/HCPCS: 99396 ==

== ENCOUNTER 2024-10-14 12:25 | Outpatient (AMB) | payer OTHER, SELFPAY ==
--- OUTSIDE RECORDS SUMMARY | 2024-10-14 12:27 | XMS_ITS | Clinical Summary ---
Author Organization [facility] Address [address] [place] [address] Care Team Providers Care Addiction Nurse Name Role Phone Chani Oh DMD Primary Care Provider [phone] Source Comments PLEASE NOTE, if this patient is a minor, it may be UNLAWFUL to discuss sensitive information that is contained in these records (such as FAMILY PLANNING, MENTAL HEALTH or SUBSTANCE ABUSE) with the minor patient's parent or other person without the patient's specific authorization.[facility] Medications amoxicillin (AMOXIL) 500 mg capsule Take 1 Cap by mouth 3 (three) times daily 21 Cap 0 Active chlorhexidine gluconate (PERIDEX) 0.12 % solution Rinse twice a day every day for 30 sec each time, do not swallow, do not rinse with water immediately after using this (wait 30 minutes) 1 Bottle 1 1 Active acetaminophen (TYLENOL) 500 mg tabletIndicatio ns:Pain, dental Take 1 Tablet by mouth every 6 (six) hours as needed for pain 20 Tablet 4 Active Social History Tobacco Use Types Packs/Day Years Used Date Smoking Tobacco: Never Assessed Social Connections Answer Date Recorded Connectedness 0 03/31/2024 Financial Resource Strain Answer Date R ecorded Financial Resource Strain 0 2023 Stress Answer Date Recorded Stress 0 10/06/2023 Physical Activity Answer Date Recorded Physical Activity 0 10/06/2023 Food Insecurity Answer Date Recorded Food 0 04/06/2024 Transportation Needs Answer Date Record ed Transportation 0 10/06/2023 Housing Stability Answer Date Recorded Housing 0 10/06/2023 Safety and Environment Answer Date Javi rded Safety 0 10/06/2023 Utilities Answer Date Recorded Utilities 0 10/06/2023 Employment Answer Date Recorded Stress 0 03/31/2024 Sex and Gender Information Value Date Recorded Sex Assigned at Not on file Legal Sex Male 11:50 AM PDT Gender Identity Not on file Sexual Orientation Not on file Plan of Treatment Health Maintenance Due Date Last Done Comments Anxiety Screening 1969 Diabetes Screening 1969 Hepatitis C Screening 1969 Lipid Screening 1969 Tobacco Screening 1969 HIV Screening 1984 Hypertension Screening (#1) 09/17/1987 Medicare Annual Wellness Visit 09/17/1987 Imm-DTaP/Tdap/Td (1 - Tdap) 1988 Imm-Hepatitis B (1 of 3 - 19+ 3-dose series) 9 CT Colonography 2014 Colonoscopy 2014 Colorectal Cancer Screening 2014 FIT/gFOBT 2014 Fecal DNA 2014 Flexible Sigmoidoscopy 2014 Imm-Zoster, Recombinant (1 of 2) 09/17/2019 [id number] ( season) 2024 Imm-Influenza (#1) 2024 Alcohol and Drug Screen 07/12/2024 Depression Annual Screen 07/12/2024 Insurance [facility] Care Teams Addiction Nurse Relationship Specialty Start Date End Date Chani Oh DMD [address] [place] [address] PCP - General Dental Social Worker 08/05/20
--- NOTE | 2024-10-14 12:28 | AM.OFFWIN_ITS ---
Intake Vital Signs 10/14/24 12:29 Height 5 ft 7 in Weight 210 lb BMI 32.9 BP 128/78 Blood Pressure Location Lt brachial Position Sitting Pulse 83 Pulse Source Pulse Oximeter Temp 98.1 F Temp Source Oral Pulse Oximetry (%) 96 Intake Visit Reasons: EP- male reproductive Itching Patient Tobacco Use Status: Current everyday Tobacco user Allergies No Known Allergies Allergy (Verified 10/14/24 12:54) Medication List - Last Reconciled 10/14/24 by AMERICA Dash-BC [adult pull ups medium As directed] ammonium lactate 12% 1 appl topical BID diazepam 5 mg PO BID PRN 30 days diclofenac sodium 1% (Voltaren Arthritis Pain) 4 grams topical QID duloxetine 30 mg PO BID emollient combination no.119 (Eucerin Advanced Repair topical cream) 1 appl topical DAILY PRN 2 weeks gabapentin 100 mg PO TID [incontinence wipes As directed] ketoconazole 2% 1 appl topical BID 14 days methadone 85 mg PO DAILY naproxen 500 mg PO BID 30 days polyethylene glycol 3350 (Miralax) 17 grams PO DAILY prazosin 100f2 mg PO BEDTIME quetiapine 50 mg PO BEDTIME quetiapine 200 mg PO BEDTIME sildenafil 100 mg PO DAILY PRN 10 days testosterone 50 mg topical DAILY 30 days tizanidine 4 mg PO BID PRN underpads As directed Do you need a note to return to daycare/school/sports/work: Yes HPI HPI Comments History of Present Illness Details History of Present Illness - The patient is a 54-year-old male pres enting with chronic itching of the male genitalia. - Symptoms of persistent pruritus have b een present for several years, intensifying with the use of protective undergarments. - Prior treatment with ketoconazole crea m was deemed ineffective. - The patient denies recent sexual activ ity and has no related STD apprehensions. - The patient avoids exacerbating the co ndition through scratching due to a past incident where excessive scratching led to bleeding. - No urological symptoms accompany this pruritus, and there are no current concerns about urination. Discussion Notes During the visit, I discussed the patient's chronic pruritus, detailing the potential causes and emphasizing the importance of genital skin care to prevent further excoriation. A new topical treatment was proposed, and the patient was educated on its application area and the importance of compliance to achieve symptom relief. I advised the patient to follow up with significant responses or if the condition fails to improve. Discussion included no evidence of sexually transmitted diseases given the patient's history. Future Uro consultation was suggested if current measures prove ineffective, especially given a history of ineffective prior treatments. Patient Instructions - Apply the triamcinolone BID over the c omplete affected area. - Avoid excessive scratching to prevent further skin trauma. - Monitor for improvements or any advers e effects. - Follow up if symptoms persist or worse n over time. Consent Patient was informed and verbally consented to the use of an ambient scribe for clinic note documentation during this visit. [facility] Medical History (Updated 10/14/24 @ 13:02 by Phyllis Lindquist [facility]) Anxiety Fibromyalgia Insomnia Nicotine dependence, cigarettes, uncomplicated Osteoarthritis of left hip Severe depression Surgical History (Reviewed 09/25/24 @ 13:[address] [facility] [place]) No pertinent past surgical history Family History Father No problems noted. Mother Diabetes mellitus Brother No problems noted. Brother Substance use disorder Sister Mental health disorder Son Substance use disorder Son No problems noted. Son No problems noted. Son No problems noted. Family/Other Mental health disorder Social History Housing: House Patient Tobacco Use Status: Current everyday Tobacco user Cigarettes Per Day: 7 e-Cigarette/Vaping Use: Never Used Second Hand Smoke Exposure: No service: No Current occupational status: disabled Cognitive needs: No Hearing needs: No Vision needs: No Physical Exam Vital Signs: Last Vital Signs Temp 98.1 F 10/14/24 12:29 Pulse 83 10/14/24 12:29 BP 128/78 10/14/24 12:29 Pulse Ox 96 10/14/24 12:29 BMI result Body Mass Index 32.9 Penis: uncircumcised and other (mild hyperpigmentation, secondary excoriations) Meatus: meatus normal Scrotum: scrotum normal Testes: Testes normal Assessment & Plan Assessment & Plan (1) 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 Medications: New triamcinolone acetonide 0.1% 1 appl topical BID 15 grams 2RF Coding Level of Care Code Est Pt Level 3 (22136) Diagnoses Balanoposthitis N47.6 Smoker F17.200
[2024-10-14 12:29] VITALS: BP 128/78; PULSE 83; TEMP 36.7; O2SAT 96; BMI 32.9
== END 2024-10-14 13:14 | disposition home or self-care (01) ==
LOC: HO.HMCWIC 12:25
PROVIDERS: PCP Nurse Practitioner Family; Visit Provider Nurse Practitioner Family
DX: N47.6 Balanoposthitis (principal); F17.200 Nicotine dependence, unspecified, uncomplicated

== ENCOUNTER → 2024-10-14 12:25 | Outpatient (BNVA) | payer OTHER, SELFPAY | PROVIDERS: PCP Nurse Practitioner Family; Visit Provider Nurse Practitioner Family | DX: N47.6 Balanoposthitis (principal); F17.200 Nicotine dependence, unspecified, uncomplicated; Z71.6 Tobacco abuse counseling | CPT/HCPCS: 99212 ==

== ENCOUNTER 2024-12-08 | Outpatient (REF) | payer OTHER, SELFPAY ==
--- OUTSIDE RECORDS SUMMARY | 2025-01-09 08:16 | XMS_ITS | Clinical Summary ---
Author Organization [facility] Address [address] [place] [address] Care Team Providers Care Electronic Security Technician Name Role Phone Chani Oh DMD Primary Care Provider [phone] Source Comments PLEASE NOTE, if this patient [...] 2014 Imm-Zoster, Recombinant (1 of 2) 09/17/2019 [id number] ( season) 2024 Alcohol and Drug Screen 07/12/2024 Depression Annual Screen 07/12/2024 Imm-Influenza (Season Ended) 2025 Insurance [facility] Care Teams Electronic Security Technician Relationship Specialty Start Date End Date Chani Oh DMD [address] [place] [address] PCP - General Dental Institutional Research Coordinator 08/05/20
== END 2024-12-08 00:01 | disposition home or self-care (01) ==
LOC: CF
PROVIDERS: PCP Nurse Practitioner Family; Visit Provider Physician Assistant Medical
DX: F17.210 Nicotine dependence, cigarettes, uncomplicated (principal)
CPT/HCPCS: G0296

== ENCOUNTER 2024-12-08 16:08 | Outpatient (AMB) | payer OTHER, SELFPAY ==
--- NOTE | 2024-12-08 08:16 | MHC.OFFVIS ---
Intake Visit Reasons: Current Smoker Allergies No Known Allergies Allergy (Verified 10/14/24 12:54) HPI HPI Current Smoker: Details: Initial telehealth phone visit for this 54yo smoker with a 30+PYH. Patient started smoking at age 16 for 38 years at 1ppd. . Denies marijuana use. Denies second hand smoke exposure. Denies exposure to chemicals or substances like asbestos. . Denies known family history of lung cancer. Denies personal history of cancers. Denies chest CT in last year. . Denies recent travel outside the [place]. Denies recent respiratory illness or recent hospitalization for respiratory issues. Denies testing positive for COVID. Denies receiving COVID Vaccine. . Denies fever, chills, new/worsening cough, hemoptysis, hoarseness or dysphagia. Denies significant chest pain, significant dyspnea or unintentional weight loss. Patient Lung Cancer Screening Questionnaire reviewed with patient by provider. . Shared Decision Making Completed. Patient meets criteria. Discussed in detail with patient, the risk vs benefit of LDCT screening. Patient consents to proceed with scan. Discussed smoking cessation. [facility] Medical History (Updated 12/08/24 @ 13:42 by Charlotte Sauer PA-C) Nicotine dependence, cigarettes, uncomplicated Severe depression Osteoarthritis of left hip Fibromyalgia Anxiety Insomnia Surgical History No pertinent past surgical history Family History Father No problems noted. Mother Diabetes mellitus Brother No problems noted. Brother Substance use disorder Sister Mental health disorder Son Substance use disorder Son No problems noted. Son No problems noted. Son No problems noted. Family/Other Mental health disorder Social History (Updated 12/08/24 @ 13:42 by Charlotte Sauer PA-C) Housing: House Patient Tobacco Use Status: Current everyday Tobacco user Years Smoked: (onset 16yo, 1ppd x 35yrs, 35pyh) e-Cigarette/Vaping Use: Never Used Second Hand Smoke Exposure: No service: No Current occupational status: disabled Cognitive needs: No Hearing needs: No Vision needs: No Telehealth Telehealth Telehealth Platform: Telephone Location of provider rendering services: practice address Location of patient: address on file Patient Identification confirmed using: Name, : Yes Telehealth method: voice only Patient verbally consented to treatment: Yes Patient verbally consented to billing insurance company: Yes Patient informed of any privacy concerns related to visit: Yes Minutes spent on Phone/Video with Pt.: 15 Assessment & Plan Assessment & Plan (1) Nicotine dependence, cigarettes, uncomplicated: Comment: (onset 16yo, 1ppd x 35yrs, 35pyh) Code(s): F17.210 - Nicotine dependence, cigarettes, uncomplicated Category: Medical Plan: - SDM visit completed today via phone - Patient meets criteria for LDCT for lung cancer screening purposes and is asymptomatic. - Smoking cessation counseling offered. Patients can always call [phone]. - Will arrange for a LDCT scan of the chest for screening purposes at [facility]. - Risks, benefits, and alternatives were discussed in detail and the patient agrees to proceed. - Risks discussed include but are not limited to: radiation exposure, anxiety during testing and while awaiting results, false negatives, false positives and possibility of additional intervention such as further imaging or surgical procedures for benign disease. - Benefits are obviously detection of lung cancer at an early stage which can lead to improved outcomes. - Discussed the importance of screening program compliance with adherence to yearly LDCT scan as scheduled - or sooner interval scans for personalized screening regimen. - Discussed follow up plan. Our office will send a letter discussing results and if needed set up phone call and office visit based on CT findings. - Patient educated on results categorization and the management decisions for suspicious findings potentially found on the screening LDCT scan. Any patient with a Lung RADS score of 3 or 4 will be reviewed by a multidisciplinary team at [facility] to form a plan of action in regards to scan findings. - If further work up is warranted for a suspicious lung finding this will be followed by the Lung Cancer Screening program in conjunction with the Thoracic Surgery Department at [facility]. - A copy of the office note and LDCT will be sent to the patient's PCP - as well as documentation on any associated further plans of care. - Incidental findings on LDCT are the PCP's responsibility. These findings are indicated with an S finding on the LDCT Assessment. A note discussing the findings will be sent to the PCP who is then responsible for further management. - All questions answered.? Coding Level of Care Code Lung Cancer Screening G0296 Diagnoses Nicotine dependence, cigarettes, uncomplicated F17.210
--- OUTSIDE RECORDS SUMMARY | 2024-12-08 16:11 | XMS_ITS | Clinical Summary ---
Author Organization [facility] Address [address] [place] [address] Care Team Providers Care Shade Classifier Name Role Phone Chani Oh DMD Primary Care Provider [phone] Source Comments PLEASE NOTE, if this patient [...] 2014 Imm-Zoster, Recombinant (1 of 2) 09/17/2019 [id number] ( season) 2024 Imm-Influenza (#1) 2024 Alcohol and Drug Screen 07/12/2024 Depression Annual Screen 07/12/2024 Insurance [facility] Care Teams Shade Classifier Relationship Specialty Start Date End Date Chani hO DMD [address] [place] [address] PCP - General Dental Financial Reporting Analyst 08/05/20
== END 2024-12-08 16:09 | disposition home or self-care (01) ==
LOC: HO.HPS 16:08
PROVIDERS: PCP Nurse Practitioner Family; Referring Provider Nurse Practitioner Family; Visit Provider Physician Assistant Medical
DX: F17.210 Nicotine dependence, cigarettes, uncomplicated (principal)
CPT/HCPCS: G0296

== ENCOUNTER 2024-12-13 16:06 | Outpatient (REF) | payer OTHER, SELFPAY ==
--- NOTE | ~2024-12-13 | CT_ITS ---
CLINICAL HISTORY: F17.210 - Nicotine dependence, cigarettes, uncomplicated CT lung cancer screening (LDCT) Comparison: None Technique: Axial CT images of the chest using low-dose technique. Referring provider counseled the patient on shared decision-making for LDCT screening. Additional counseling was provided on smoking cessation. Effective radiation dose total: DLP 61.3 mGycm, CTDIvol 1.6 mGy. Findings: There is a 2 mm perifissural nodule in the left lower lobe best seen on image number 50 of series number 5. No other pulmonary nodules noted. There are no coronary artery calcifications. Limited upper abdomen: Unremarkable Other: None Impression: LungRADS 2 - Benign Appearance: Continue annual screening with low dose Chest CT in 12 months. ##L2# Category 1: Normal; continue annual screening Category 2: Benign appearance or behavior, continue annual screening Category 3: Probably benign, [address] recommended Category 4A: Suspicious, [address] recommended; may consider PET/CT Category 4B: Suspicious, Additional diagnostics and/or tissue sampling recommended Category 4X: Suspicious, Additional diagnostics and/or tissue sampling recommended Category 0: Recalls (incomplete screen due to Incomplete coverage, Noise, Respiratory motion, Expiration, Obscured by acute abnormality) This document has been electronically signed by: Luis Angel Lima MD on 12/14/2024 13:18:41
== END 2024-12-13 16:07 | disposition home or self-care (01) ==
LOC: HO.CT 16:06
PROVIDERS: PCP Nurse Practitioner Family; Visit Provider Physician Assistant Medical
DX: Z12.2 Encounter for screening for malignant neoplasm of respiratory organs (principal); F17.210 Nicotine dependence, cigarettes, uncomplicated
CPT/HCPCS: 71271

== ENCOUNTER → 2024-12-13 16:10 | Outpatient (BNV) | payer OTHER, SELFPAY | PROVIDERS: PCP Nurse Practitioner Family; Visit Provider Radiology Diagnostic Radiology | DX: F17.210 Nicotine dependence, cigarettes, uncomplicated (principal) | CPT/HCPCS: 71271 ==

== ENCOUNTER 2025-03-28 14:11 | Outpatient (AMB) | payer OTHER, SELFPAY ==
[2025-03-28 14:13] VITALS: BP 120/70; PULSE 90; TEMP 36.7; O2SAT 95; BMI 32.6
--- NOTE | 2025-03-28 14:13 | AM.OFFWIN_ITS ---
Intake Vital Signs 03/28/25 14:13 Height 5 ft 7 in Weight 208 lb BMI 32.6 BP 120/70 Blood Pressure Location Lt brachial Position Sitting Pulse 90 Pulse Source Pulse Oximeter Temp 98.1 F Temp Source Oral Pulse Oximetry (%) 95 Oxygen Delivery Method Room Air Intake Visit Reasons: EP SOB,coughing, pain side of stomach, body pains Intake Note: pt presents with chest congestion with productive coughing causing pain to RUQ and SOB, body and joint aches for 2 weeks Patient Tobacco Use Status: Current everyday Tobacco user Allergies No Known Allergies Allergy (Verified 03/28/25 14:17) Do you need a note to return to daycare/school/sports/work: No HPI HPI Comments History of Present Illness Details History - The patient is a 54-year-old male pres enting with cough and body ache. - The cough has persisted for approximat alden two weeks, characterized by episodes of severe coughing lasting up to 10 minutes, resulting in right chest wall pain due to strain. - The patient reports phlegm production, occasionally beige or green in color, and experiences difficulty expectorating. - The patient is a smoker, which may con tribute to respiratory symptoms. - No other household members are reporte d to be ill, and the patient has not tested for COVID-19. - The patient has not taken any over-the -counter medications except for lozenges. - The patient experiences body aches, pa rticularly in the neck and shoulder areas, and has a history of arthritis, for which he takes tizanidine, naproxen, and methadone. - He is a smoker. - He has no fever, chills, chest pain, a bd pain, n/v/d. Physical Exam General: Cooperative, healthy appearing, comfortable and no acute distress Orientation/consciousness: Patient oriented x3 Limitations: No limitations Head: Normal to inspection Ears: Hearing grossly normal bilaterally, external ears normal and TM's normal bilaterally Nose: Normal external nose present, normal nares present, and no nasal discharge present. Face and sinus: Sinuses nontender to palpation. Mouth: Normal oral and palatal mucosa present and moist mucous membranes noted. Throat: Tonsils normal. Uvula is midline. Posterior oropharynx with erythema and no exudates. Eyes: Appearance normal, both eyes and all related structures Neck: Normal visual inspection, full ROM. No lymphadenopathy noted. Respiratory: Clear to auscultation bilaterally. Normal respiratory effort, able to speak in complete sentences. No respiratory distress, not tachypneic, no tripod positioning and no use of accessory muscles. Cardiovascular: Regular rate and rhythm. Normal S1 and S2 Skin: No rashes or lesions noted Patient was informed and verbally consented to the use of an ambient scribe for clinic note documentation during this visit [facility] Medical History (Updated 12/08/24 @ 13:42 by Charlotte Sauer PA-C) Nicotine dependence, cigarettes, uncomplicated Severe depression Osteoarthritis of left hip Fibromyalgia Anxiety Insomnia Surgical History No pertinent past surgical history Family History Father No problems noted. Mother Diabetes mellitus Brother No problems noted. Brother Substance use disorder Sister Mental health disorder Son Substance use disorder Son No problems noted. Son No problems noted. Son No problems noted. Family/Other Mental health disorder Social History (Updated 12/08/24 @ 13:42 by Charlotte Sauer PA-C) Housing: House Patient Tobacco Use Status: Current everyday Tobacco user Cigarettes Per Day: 7 Years Smoked: (onset 16yo, 1ppd x 35yrs, 35pyh) e-Cigarette/Vaping Use: Never Used Second Hand Smoke Exposure: No service: No Current occupational status: disabled Cognitive needs: No Hearing needs: No Vision needs: No Review of Systems Const All systems reviewed & are unremarkable except as noted in HPI and below Physical Exam Vital Signs: Last Vital Signs Temp 98.1 F 03/28/25 14:13 Pulse 90 03/28/25 14:13 BP 120/70 03/28/25 14:13 Pulse Ox 95 03/28/25 14:13 Oxygen Delivery Method Room Air 03/28/25 14:13 BMI result Body Mass Index 32.6 Results Reviewed Results Reviewed: will review the CXR in the office Assessment & Plan Assessment & Plan (1) Cough: Code(s): R05.9 - Cough, unspecified Qualifiers: Cough type: acute Qualified Code(s): R05.1 - Acute cough Plan Most likely URI vs covid vs flu vs RSV vs viral illness vs bronchitis vs CAP plan - Plan includes a chest x-ray to evaluate for pneumonia or bronchitis. - Prescribed antibiotics and cough medicine to manage symptoms. - An inhaler will be provided to assist with respiratory symptoms. - A respiratory panel will be conducted to identify any viral or bacterial pathogens. - will call with the results - follow up with PCP Orders: Orders XR chest 2V Today R05.9 - Cough, unspecified Resp Pathogen Panel - [facility] Today J06.9 - Acute upper respiratory infection, unspecified Medications: New benzonatate 100 mg PO bid-tid PRN 21 caps 0RF Cough 7 days albuterol sulfate 90 mcg/actuation 2 puffs inhalation Q6H PRN 8.5 grams 0RF shortness of breath or wheezing or cough azithromycin For 250 mg dose pack: take 500 mg today (day 1), then 250 mg for 4 days (days 2-5) PO 6 tabs 0RF Coding Level of Care Code Est Pt Level 4 (54988) Diagnoses Acute cough R05.1 Cough type: acute
--- OUTSIDE RECORDS SUMMARY | 2025-03-28 17:54 | XMS_ITS | Clinical Summary ---
Author Organization [facility] Address [address] [place] [address] Care Team Providers Care Hand Buffing Wheel Former Name Role Phone Chani Oh DMD Primary Care Provider [phone] Source Comments PLEASE NOTE, if this patient [...] 2014 Fecal DNA 2014 Flexible Sigmoidoscopy 2014 Imm-Pneumococcal 50+ (1 of 1 - PCV) 09/17/2019 Imm-Zoster, Recombinant (1 of 2) 09/17/2019 Alcohol and Drug Screen 07/12/2024 Depression Annual Screen 07/12/2024 [id number] ( - 2023- season) 2025 Imm-Influenza (#1) 2025 Insurance [facility] Care Teams Hand Buffing Wheel Former Relationship Specialty Start Date End Date Chani Oh DMD [address] [place] [id number] PCP - General Dental Millroom Supervisor 08/05/20
== END 2025-03-28 15:02 | disposition home or self-care (01) ==
PROVIDERS: PCP Nurse Practitioner Family; Visit Provider Physician Assistant Medical
DX: R05.1 Acute cough (principal)

== ENCOUNTER 2025-03-28 14:11 | Outpatient (REF) | payer OTHER, SELFPAY ==
--- NOTE | ~2025-03-28 | XR_ITS ---
EXAMINATION: XR CHEST 2 VIEWS HISTORY: R05.9 - Cough, unspecified COMPARISON: Comparison is made with the prior examination dated 06/15/2019. FINDINGS: PA and lateral views of the chest are submitted. The lungs are expanded and clear. There is no pleural effusion, pneumothorax, or pulmonary vascular congestion. The heart is normal in size. The bones are intact. XR/XR chest 2V IMPRESSION: No acute cardiopulmonary abnormality. Electronically signed by: Bubba Brown MD 03/28/2025 03:23 PM EDT
[2025-03-29 08:56] LABS: Chlamydia pneumoniae PCR Not Detected (Not Detect.); Coronavirus 229E PCR Not Detected (Not Detect.); Coronavirus HKU1 PCR Not Detected (Not Detect.); Coronavirus NL63 PCR Not Detected (Not Detect.); Coronavirus OC43 PCR Not Detected (Not Detect.); RSV PCR Not Detected (Not Detect.); Rhino/Enterovirus PCR Not Detected (Not Detect.)
[2025-03-29 10:24] LABS: Influenza A H1 PCR Not Detected (Not Detect.); Influenza A H1-2009 PCR Not Detected (Not Detect.); Influenza A H3 PCR Not Detected (Not Detect.); SARS-CoV-2 PCR Not Detected (Not Detect.)
== END 2025-03-28 14:12 | disposition home or self-care (01) ==
LOC: HO.HMGCX 14:11
PROVIDERS: PCP Nurse Practitioner Family; Visit Provider Physician Assistant Medical
DX: R05.1 Acute cough (principal); R06.02 Shortness of breath; R10.9 Unspecified abdominal pain; F17.210 Nicotine dependence, cigarettes, uncomplicated
CPT/HCPCS: 71046; 87633; 99212

== ENCOUNTER → 2025-03-28 14:55 | Outpatient (BNV) | payer OTHER, SELFPAY | PROVIDERS: PCP Nurse Practitioner Family; Visit Provider Radiology Diagnostic Radiology | DX: R05.9 Cough, unspecified (principal) | CPT/HCPCS: 71046 ==